=== PATIENT | male | born 1955 | race Caucasian/White ===

== ENCOUNTER 2017-05-19 23:15 | Emergency (ER) | payer MEDICAID ==
[~2017-05-19] VITALS: Ht 180.3 cm; Wt 116.1 kg
[2017-05-19 23:18] VITALS: BP 122/73
--- NOTE | 2017-05-20 05:00 | NUR ---
PATIENT LEFT WITHOUT BEING SEEN BY DR. DIXON. NO FURTHER CARE PROVIDED FOR PATIENT.
== END 2017-05-20 05:00 | disposition left against medical advice (07) ==
LOC: MED 23:15
DX: M54.5 Low back pain (principal); R30.9 Painful micturition, unspecified; R51 Headache; Z53.21 Procedure and treatment not carried out due to patient leaving prior to being seen by health care provider

== ENCOUNTER 2018-05-08 22:23 | Emergency (ER) | payer MEDICAID ==
[~2018-05-08] VITALS: Ht 180.3 cm; Wt 117.9 kg
[2018-05-08 22:33] VITALS: BP 138/73
--- NOTE | 2018-05-08 22:33 | NUR ---
PATIENT PRESENTS TO ED WITH LEFT SHOULDER PAIN X2 WEEKS. PT STATES DENIES N/V/D; SKIN IS PINK/WARM/DRY; AAOX4 WITH EVEN AND STEADY GAIT; LUNGS CLEAR BL; HR EVEN AND REGULAR; PT DENIES ANY FEVER, CP, SOB, OR COUGH AT THIS TIME; PATIENT STATES PAIN OF 0/10 AT THIS TIME; VSS; PATIENT POSITIONED FOR COMFORT; HOB ELEVATED; BEDRAILS UP X1; BED DOWN. ER MD MADE AWARE OF PT STATUS.
--- NOTE | 2018-05-08 22:35 | NUR ---
PATIENT REPORT GIVEN TO GUERDA SERNA.
[2018-05-08] MEDS ORDERED: CYCLOBENZAPRINE 10 MG TAB PO ONE (22:45)
[2018-05-08] MEDS ORDERED: KETOROLAC 30 MG/ML VIAL IM ONE (22:45)
--- NOTE | 2018-05-08 23:10 | NUR ---
TAKEN TO XRAY VIA WHEELCHAIR WITH TECH.
[2018-05-08 23:35] VITALS: BP 120/76
--- NOTE | 2018-05-08 23:35 | NUR ---
Patient discharged with v/s stable. Written and verbal after care instructions given and explained. Patient alert, oriented and verbalized understanding of instructions. Ambulatory with steady gait. All questions addressed prior to discharge. ID band removed. Patient advised to follow up with PMD. Rx of FLEXERIL given. Patient educated on indication of medication including possible reaction and side effects. Opportunity to ask questions provided and answered.
== END 2018-05-08 23:35 | disposition home or self-care (01) ==
LOC: MED 22:23
DX: M75.02 Adhesive capsulitis of left shoulder (principal)
CPT/HCPCS: 73030; 96372; 99284; J1885